=== PATIENT | male | born 1955 | race Caucasian/White ===

== ENCOUNTER 2017-05-07 05:15 | Inpatient (IN) | payer MEDICAID ==
[2017-05-07] VITALS (61 sets, daily range): BP systolic 98–186; BP diastolic 60–112
[~2017-05-07] VITALS: Ht 175.3 cm; Wt 114.0 kg
[~2017-05-07 05:15] MED LIST: AMLO2.5T45 PO; ATOR-2 PO; FURO40TA5 PO; GABA-290 PO; GABA-531 PO; INSU100I11 SQ; LEVO200T8 PO; LOSA50TA20 PO; METO25TA6 PO; TAMS0.4C31 PO; TRAZ-129 PO
[2017-05-07] MEDS ORDERED: GELATIN SPONGE,ABSORBABLE SZ 100 ONE (06:06)
[2017-05-07] MEDS ORDERED: THROMBIN (BOVINE) 5000 UNITS/VIAL TOP ONE (06:06)
[2017-05-07] MEDS ORDERED: NORMAL SALINE 0.9% 10 ML SYR ONE (06:06)
[2017-05-07] MEDS ORDERED: BACITRACIN 50,000 UNITS/VIAL ONE (06:06)
[2017-05-07] MEDS ORDERED: DEXT 5%/0.9% NACL 1,000 ML IV SCH (06:15)
[2017-05-07] MEDS ORDERED: INSULIN REGULAR (HUMULIN R) 300UNITS/3ML SUBCUT ONE (06:15)
[2017-05-07] MEDS ORDERED: INSULIN REGULAR (HUMULIN R) UD 100 UNITS/ML SYR SUBCUT ONE (06:30)
[2017-05-07 06:40] LABS: BASOPHILS % 0.7 % (0.0-2.0); EOSINOPHILS % 4.1 % (0.0-5.0); HEMATOCRIT. 41.9 % (42.0-52.0); HEMOGLOBIN. 14.6 g/dL (14.0-18.0); LYMPHOCYTES % 21.3 % (20.0-50.0); MEAN CORPUSCULAR HEMOGLOBIN 31.8 pg (28.0-32.0); MEAN CORPUSCULAR VOLUME 90.9 fL (80.0-94.0); MEAN PLATELET VOLUME 9.6 fl (7.4-10.4); MONOCYTES % 6.7 % (2.0-8.0); NEUTROPHILS % 67.2 % (40.0-76.0); PLATELET 253 x1000/uL (130-400); RED CELL DISTRIBUTION WIDTH 13.4 % (11.6-14.6)
[2017-05-07 06:43] LABS: CLARITY URINE CLEAR (CLEAR); COLOR URINE YELLOW (YELLOW); GLUCOSE URINE 3+ (NEGATIVE); KETONES URINE NEGATIVE (NEGATIVE); LEUKOCYTE ESTERASE URINE NEGATIVE (NEGATIVE); NITRITE URINE NEGATIVE (NEGATIVE); OCCULT BLOOD URINE 1+ (NEGATIVE); PROTEIN URINE 3+ (NEGATIVE); SPECIFIC GRAVITY URINE 1.022 (1.005-1.030)
[2017-05-07] MEDS ORDERED: ONDANSETRON HCL 4MG/2ML VIAL IV PRN ×2 (07:30→08:30)
[2017-05-07] MEDS ORDERED: IPRATROPIUM/ALBUTEROL 0.5-3(2.5)MG/3ML NEB INH PRN (07:30)
[2017-05-07] MEDS ORDERED: ACETAMINOPHEN 325MG TABLET PO PRN (07:30)
[2017-05-07] MEDS ORDERED: DIPHENHYDRAMINE 50MG/ML VIAL IV PRN (07:30)
[2017-05-07] MEDS ORDERED: MIDAZOLAM HCL 2 MG/2 ML VIAL ONE (07:35)
[2017-05-07] MEDS ORDERED: FENTANYL CITRATE/PF 50MCG/ML 2ML VIAL ONE (07:35)
[2017-05-07] MEDS ORDERED: HYDROMORPHONE HCL/PF 2MG/ML (OR) ONE (08:06)
[2017-05-07] MEDS ORDERED: MEPERIDINE HCL/PF 25MG/ML CPJ IV PRN (08:30)
[2017-05-07] MEDS ORDERED: LABETALOL HCL 20MG/4ML CARPUJECT IV PRN (08:30)
[2017-05-07] MEDS ORDERED: HYDROMORPHONE HCL/PF 2MG/ML CPJ IV PRN (08:30)
[2017-05-07] MEDS ORDERED: PROPOFOL 200MG/20ML VIAL IV ONE (09:17)
[2017-05-07] MEDS ORDERED: CEFAZOLIN SODIUM 1000MG/VIAL ONE (09:17)
[2017-05-07] MEDS ORDERED: ROCURONIUM BROMIDE 10MG/ML VIAL 5ML IV ONE (09:17)
[2017-05-07] MEDS ORDERED: GLYCOPYRROLATE 0.2 MG/ML 2ML VIAL ONE (09:17)
[2017-05-07] MEDS ORDERED: NEOSTIGMINE METHYLSULFATE 1MG/ML 10 ML VIAL ONE (09:17)
[2017-05-07] MEDS ORDERED: SUCCINYLCHOLINE CHLORIDE 200MG/10ML VIAL IV ONE (09:17)
[2017-05-07] MEDS ORDERED: EPHEDRINE SULFATE 50MG/ML VIAL ONE (09:17)
[2017-05-07] MEDS ORDERED: SODIUM CHLORIDE 0.9% 10ML VIAL ONE (09:17)
[2017-05-07] MEDS ORDERED: LIDOCAINE HCL 1% 20ML VIAL (Pyxis) INJ ONE (09:17)
[2017-05-07] MEDS ORDERED: LIDOCAINE 1%/EPI 1:200,000 10 ML VIAL IJ ONE (09:20)
[2017-05-07] MEDS ORDERED: DEXTROSE 50% WATER 50ML SYRINGE IV PRN (10:15)
[2017-05-07] MEDS ORDERED: DIPHENHYDRAMINE INJ IV PRN (10:30)
[2017-05-07] MEDS ORDERED: ONDANSETRON INJ IV PRN (10:30)
[2017-05-07] MEDS ORDERED: NALOXONE INJ IV PRN (10:30)
[2017-05-07] MEDS: DEXT 5%/LACTATED RINGERS 1,000 ML IV SCH ×2 (11:04→20:00)
[2017-05-07] MEDS ORDERED: HYDROMORPHONE PCA 10MG/50ML IV PRN (11:30)
[2017-05-07] MEDS: INSULIN LISPRO 100 UNITS/ML SUBCUT SCH ×3 (11:38→21:45)
[2017-05-07] MEDS: BLOOD SUGAR DIAGNOSTIC STRIP TEST SCH ×3 (11:39→21:25)
[2017-05-07] MEDS: DEXAMETHASONE 4MG/ML 1ML VIAL IV SCH ×2 (11:39→17:35)
[2017-05-07] MEDS: NICARDIPINE 100 MG in SODIUM CHLORIDE 0.9% 60 ML IV PRN (11:44)
[2017-05-07] MEDS ORDERED: CEFAZOLIN SODIUM 1000MG/VIAL IV SCH (14:00)
[2017-05-07] MEDS: CEFAZOLIN 1000MG PREMIX 50 ML IV SCH ×2 (15:10→21:44)
[2017-05-07] MEDS ORDERED: INFLUENZA VIRUS VACCINE 0.5ML SYR IM ONE (20:30)
[2017-05-07] MEDS ORDERED: PNEUMOCOCCAL 23-VAL P-SAC VAC 0.5 ML IM ONE (20:30)
[2017-05-07] MEDS: INSULIN DETEMIR UD 100 UNITS/ML SYR SUBCUT SCH (21:46)
[2017-05-08] VITALS (73 sets, daily range): BP systolic 122–173; BP diastolic 59–89
[2017-05-08] MEDS: DEXAMETHASONE 4MG/ML 1ML VIAL IV SCH ×5 (01:14→23:12)
[2017-05-08] MEDS: CEFAZOLIN 1000MG PREMIX 50 ML IV SCH (05:22)
[2017-05-08] MEDS: HYDROCODONE/ACETAMINOPHEN 10/325MG TABLET PO PRN (05:23)
[2017-05-08] MEDS: BLOOD SUGAR DIAGNOSTIC STRIP TEST SCH ×4 (05:58→21:01)
[2017-05-08 06:01] LABS: HEMATOCRIT. 39.4 % (42.0-52.0); HEMOGLOBIN. 13.3 g/dL (14.0-18.0); MEAN CORPUSCULAR HEMOGLOBIN 30.9 pg (28.0-32.0); MEAN CORPUSCULAR VOLUME 91.6 fL (80.0-94.0); MEAN PLATELET VOLUME 9.7 fl (7.4-10.4); PLATELET 232 x1000/uL (130-400); RED CELL DISTRIBUTION WIDTH 13.2 % (11.6-14.6)
[2017-05-08] MEDS: INSULIN LISPRO 100 UNITS/ML SUBCUT SCH ×4 (06:05→21:03)
[2017-05-08] MEDS: DEXT 5%/LACTATED RINGERS 1,000 ML IV SCH ×2 (06:05→10:49)
[2017-05-08 07:31] LABS: CHLORIDE 107 mEq/L (98-107)
[2017-05-08 07:46] LABS: CARBON DIOXIDE 24 mEq/L (21-32)
[2017-05-08] MEDS ORDERED: FUROSEMIDE 40MG TABLET PO SCH (09:00)
[2017-05-08] MEDS ORDERED: TAMSULOSIN HCL 0.4MG SR CAPSULE PO SCH (09:00)
[2017-05-08] MEDS ORDERED: LEVOTHYROXINE SODIUM 200MCG TABLET PO SCH (10:00)
[2017-05-08] MEDS: LOSARTAN POTASSIUM 50 MG TABLET PO SCH (10:48)
[2017-05-08] MEDS: METOPROLOL TARTRATE 25MG TABLET PO SCH ×2 (10:48→20:39)
[2017-05-08] MEDS: AMLODIPINE 2.5MG TABLET PO SCH (10:48)
[2017-05-08 12:34] LABS: PLATELET ESTIMATE NORMAL
[2017-05-08] MEDS: FUROSEMIDE 40MG TABLET PO SCH (13:09)
[2017-05-08] MEDS ORDERED: LEVOTHYROXINE SODIUM 100MCG TABLET PO NR (15:15)
[2017-05-08] MEDS ORDERED: TRAZODONE HCL 50MG TABLET PO SCH (17:00)
[2017-05-08] MEDS: TRAZODONE HCL 50MG TABLET PO SCH (20:55)
[2017-05-08] MEDS: TAMSULOSIN HCL 0.4MG SR CAPSULE PO SCH (21:01)
[2017-05-08] MEDS: INSULIN DETEMIR UD 100 UNITS/ML SYR SUBCUT SCH (21:03)
[2017-05-09] VITALS (83 sets, daily range): BP systolic 92–185; BP diastolic 15–108
[2017-05-09] MEDS: DEXT 5%/LACTATED RINGERS 1,000 ML IV SCH (03:16)
[2017-05-09] MEDS: DEXAMETHASONE 4MG/ML 1ML VIAL IV SCH ×3 (05:12→17:32)
[2017-05-09 05:27] LABS: HEMATOCRIT. 40.9 % (42.0-52.0); HEMOGLOBIN. 13.9 g/dL (14.0-18.0); MEAN CORPUSCULAR HEMOGLOBIN 30.8 pg (28.0-32.0); MEAN CORPUSCULAR VOLUME 90.9 fL (80.0-94.0); MEAN PLATELET VOLUME 9.7 fl (7.4-10.4); PLATELET 255 x1000/uL (130-400); RED CELL DISTRIBUTION WIDTH 13.2 % (11.6-14.6)
[2017-05-09] MEDS: NICARDIPINE 100 MG in SODIUM CHLORIDE 0.9% 60 ML IV PRN (06:36)
[2017-05-09] MEDS: LEVOTHYROXINE SODIUM 100MCG TABLET PO SCH (06:37)
[2017-05-09] MEDS: BLOOD SUGAR DIAGNOSTIC STRIP TEST SCH ×4 (06:39→21:47)
[2017-05-09] MEDS: INSULIN LISPRO 100 UNITS/ML SUBCUT SCH ×4 (06:44→21:47)
[2017-05-09 07:21] LABS: PLATELET ESTIMATE NORMAL
[2017-05-09] MEDS: METOPROLOL TARTRATE 25MG TABLET PO SCH ×2 (07:37→21:46)
[2017-05-09] MEDS: FUROSEMIDE 40MG TABLET PO SCH (10:02)
[2017-05-09] MEDS: AMLODIPINE 2.5MG TABLET PO SCH (13:25)
[2017-05-09] MEDS ORDERED: GUAIFENESIN-DM 200MG-20MG/10ML UDC PO PRN (15:00)
[2017-05-09] MEDS: LOSARTAN POTASSIUM 50 MG TABLET PO SCH (16:14)
[2017-05-09] MEDS: TRAZODONE HCL 50MG TABLET PO SCH (21:46)
[2017-05-09] MEDS: TAMSULOSIN HCL 0.4MG SR CAPSULE PO SCH (21:46)
[2017-05-09] MEDS: INSULIN DETEMIR UD 100 UNITS/ML SYR SUBCUT SCH (23:02)
[2017-05-10] VITALS (22 sets, daily range): BP systolic 122–170; BP diastolic 62–99
[2017-05-10] MEDS: DEXAMETHASONE 4MG/ML 1ML VIAL IV SCH ×4 (00:09→18:15)
[2017-05-10] MEDS: DEXT 5%/LACTATED RINGERS 1,000 ML IV SCH (02:11)
[2017-05-10] MEDS: BLOOD SUGAR DIAGNOSTIC STRIP TEST SCH ×5 (05:37→21:41)
[2017-05-10] MEDS: LEVOTHYROXINE SODIUM 100MCG TABLET PO SCH (05:57)
[2017-05-10 06:07] LABS: HEMATOCRIT. 41.3 % (42.0-52.0); HEMOGLOBIN. 13.9 g/dL (14.0-18.0); MEAN CORPUSCULAR HEMOGLOBIN 30.7 pg (28.0-32.0); MEAN CORPUSCULAR VOLUME 91.1 fL (80.0-94.0); PLATELET 267 x1000/uL (130-400); RED BLOOD CELL COUNT 4.54 mill/uL (4.7-6.1); RED CELL DISTRIBUTION WIDTH 13.1 % (11.6-14.6)
[2017-05-10 08:25] LABS: PLATELET ESTIMATE NORMAL
[2017-05-10] MEDS: INSULIN LISPRO 100 UNITS/ML SUBCUT SCH ×4 (08:54→21:00)
[2017-05-10] MEDS: METOPROLOL TARTRATE 25MG TABLET PO SCH ×2 (08:58→21:40)
[2017-05-10] MEDS: FUROSEMIDE 40MG TABLET PO SCH (08:59)
[2017-05-10] MEDS: LOSARTAN POTASSIUM 50 MG TABLET PO SCH ×2 (08:59→21:40)
[2017-05-10] MEDS: AMLODIPINE 2.5MG TABLET PO SCH (08:59)
[2017-05-10] MEDS ORDERED: BISACODYL 5MG TABLET PO NR (13:15)
[2017-05-10] MEDS: DOCUSATE SODIUM 250MG CAPSULE PO SCH (13:45)
[2017-05-10] MEDS: LEVOFLOXACIN 750MG PREMIX 150 ML IV SCH (15:21)
[2017-05-10] MEDS: INSULIN DETEMIR UD 100 UNITS/ML SYR SUBCUT SCH (21:39)
[2017-05-10] MEDS: TAMSULOSIN HCL 0.4MG SR CAPSULE PO SCH (21:40)
[2017-05-10] MEDS: TRAZODONE HCL 50MG TABLET PO SCH (21:40)
[2017-05-11] VITALS (7 sets, daily range): BP systolic 146–175; BP diastolic 72–96
[2017-05-11] MEDS: DEXAMETHASONE 4MG/ML 1ML VIAL IV SCH ×4 (00:43→18:34)
[2017-05-11] MEDS: DEXT 5%/LACTATED RINGERS 1,000 ML IV SCH (00:43)
[2017-05-11] MEDS: HYDROCODONE/ACETAMINOPHEN 10/325MG TABLET PO PRN (05:12)
[2017-05-11 06:04] LABS: HEMATOCRIT. 45.2 % (42.0-52.0); HEMOGLOBIN. 14.9 g/dL (14.0-18.0); MEAN CORPUSCULAR HEMOGLOBIN 30.3 pg (28.0-32.0); MEAN CORPUSCULAR VOLUME 91.8 fL (80.0-94.0); MEAN PLATELET VOLUME 9.7 fl (7.4-10.4); PLATELET 276 x1000/uL (130-400); RED BLOOD CELL COUNT 4.92 mill/uL (4.7-6.1); RED CELL DISTRIBUTION WIDTH 13.6 % (11.6-14.6)
[2017-05-11] MEDS: BLOOD SUGAR DIAGNOSTIC STRIP TEST SCH ×4 (06:27→21:07)
[2017-05-11] MEDS: LEVOTHYROXINE SODIUM 100MCG TABLET PO SCH (06:33)
[2017-05-11] MEDS: DOCUSATE SODIUM 250MG CAPSULE PO SCH (08:56)
[2017-05-11] MEDS: AMLODIPINE 5MG TABLET PO SCH (08:56)
[2017-05-11] MEDS: LOSARTAN POTASSIUM 50 MG TABLET PO SCH ×2 (08:57→21:17)
[2017-05-11] MEDS: FUROSEMIDE 40MG TABLET PO SCH (08:57)
[2017-05-11] MEDS: INSULIN LISPRO 100 UNITS/ML SUBCUT SCH ×4 (08:59→21:19)
[2017-05-11] MEDS: METOPROLOL TARTRATE 25MG TABLET PO SCH ×2 (09:00→21:18)
[2017-05-11] MEDS ORDERED: BISACODYL 5MG TABLET PO PRN (09:00)
[2017-05-11] MEDS: TRAZODONE HCL 50MG TABLET PO SCH (21:17)
[2017-05-11] MEDS: TAMSULOSIN HCL 0.4MG SR CAPSULE PO SCH (21:18)
[2017-05-11] MEDS: INSULIN DETEMIR UD 100 UNITS/ML SYR SUBCUT SCH (21:19)
[2017-05-11 22:31] LABS: PLATELET ESTIMATE NORMAL
[2017-05-12] VITALS: BP 140/85
[2017-05-12] MEDS: DEXAMETHASONE 4MG/ML 1ML VIAL IV SCH ×4 (01:08→18:10)
[2017-05-12 04:00] VITALS: BP 142/75
[2017-05-12] MEDS: BLOOD SUGAR DIAGNOSTIC STRIP TEST SCH ×4 (06:55→20:48)
[2017-05-12] MEDS: LEVOTHYROXINE SODIUM 100MCG TABLET PO SCH (06:55)
[2017-05-12 07:02] LABS: BASOPHILS % 0.1 % (0.0-2.0); HEMATOCRIT. 41.8 % (42.0-52.0); HEMOGLOBIN. 14.2 g/dL (14.0-18.0); LYMPHOCYTES % 9.8 % (20.0-50.0); MEAN CORPUSCULAR HEMOGLOBIN 30.9 pg (28.0-32.0); MEAN CORPUSCULAR VOLUME 90.8 fL (80.0-94.0); MEAN PLATELET VOLUME 9.5 fl (7.4-10.4); NEUTROPHILS % 85.1 % (40.0-76.0); PLATELET 289 x1000/uL (130-400); RED CELL DISTRIBUTION WIDTH 12.8 % (11.6-14.6)
[2017-05-12] MEDS: INSULIN LISPRO 100 UNITS/ML SUBCUT SCH ×4 (07:56→21:15)
[2017-05-12 08:00] VITALS: BP 138/60
[2017-05-12] MEDS: DOCUSATE SODIUM 250MG CAPSULE PO SCH (09:11)
[2017-05-12] MEDS: LOSARTAN POTASSIUM 50 MG TABLET PO SCH ×2 (09:11→20:47)
[2017-05-12] MEDS: AMLODIPINE 5MG TABLET PO SCH (09:12)
[2017-05-12] MEDS: METOPROLOL TARTRATE 25MG TABLET PO SCH ×2 (09:12→20:47)
[2017-05-12] MEDS: FUROSEMIDE 40MG TABLET PO SCH (09:12)
[2017-05-12 12:00] VITALS: BP 137/88
[2017-05-12] MEDS: LACTULOSE 20G/30ML UDC PO SCH ×4 (13:01→20:53)
[2017-05-12] MEDS: LEVOFLOXACIN 750MG PREMIX 150 ML IV SCH (13:06)
[2017-05-12 16:00] VITALS: BP 125/65
[2017-05-12 20:00] VITALS: BP 139/78
[2017-05-12] MEDS: POLYETHYLENE GLYCOL 3350 (17GM) 1 DOSE PACK PO SCH ×2 (20:46→20:53)
[2017-05-12] MEDS: TAMSULOSIN HCL 0.4MG SR CAPSULE PO SCH (20:46)
[2017-05-12] MEDS: TRAZODONE HCL 50MG TABLET PO SCH (20:47)
[2017-05-12] MEDS: DEXT 5%/LACTATED RINGERS 1,000 ML IV SCH (20:48)
[2017-05-12] MEDS: INSULIN DETEMIR UD 100 UNITS/ML SYR SUBCUT SCH (21:15)
[2017-05-13] VITALS: BP 163/87
[2017-05-13] MEDS: DEXAMETHASONE 4MG/ML 1ML VIAL IV SCH ×5 (00:01→23:56)
[2017-05-13 04:00] VITALS: BP 154/79
[2017-05-13] MEDS: BLOOD SUGAR DIAGNOSTIC STRIP TEST SCH ×4 (06:51→20:54)
[2017-05-13] MEDS: LEVOTHYROXINE SODIUM 100MCG TABLET PO SCH (06:51)
[2017-05-13 07:40] LABS: BASOPHILS % 0.1 % (0.0-2.0); HEMATOCRIT. 42.7 % (42.0-52.0); HEMOGLOBIN. 14.6 g/dL (14.0-18.0); LYMPHOCYTES % 9.7 % (20.0-50.0); MEAN CORPUSCULAR HEMOGLOBIN 31.2 pg (28.0-32.0); MEAN CORPUSCULAR VOLUME 91.4 fL (80.0-94.0); MEAN PLATELET VOLUME 9.7 fl (7.4-10.4); MONOCYTES % 5.8 % (2.0-8.0); NEUTROPHILS % 84.4 % (40.0-76.0); PLATELET 286 x1000/uL (130-400); RED BLOOD CELL COUNT 4.67 mill/uL (4.7-6.1); RED CELL DISTRIBUTION WIDTH 13.2 % (11.6-14.6)
[2017-05-13] MEDS ORDERED: NA PHOS,M-B/NA PHOS,DI-BA ENEMA 118ML PR ONE (07:45)
[2017-05-13] MEDS ORDERED: BISACODYL 10MG SUPP PR PRN (07:45)
[2017-05-13] MEDS ORDERED: LACTULOSE 20G/30ML UDC PO PRN (07:45)
[2017-05-13] MEDS: INSULIN LISPRO 100 UNITS/ML SUBCUT SCH ×4 (07:50→21:36)
[2017-05-13 08:05] VITALS: BP 151/73
[2017-05-13] MEDS: AMLODIPINE 5MG TABLET PO SCH (08:25)
[2017-05-13] MEDS: DOCUSATE SODIUM 250MG CAPSULE PO SCH (08:25)
[2017-05-13] MEDS: FUROSEMIDE 40MG TABLET PO SCH (08:26)
[2017-05-13] MEDS: LOSARTAN POTASSIUM 50 MG TABLET PO SCH ×2 (08:26→20:54)
[2017-05-13] MEDS: METOPROLOL TARTRATE 25MG TABLET PO SCH ×2 (08:27→20:53)
[2017-05-13 12:00] VITALS: BP 175/96
[2017-05-13 16:00] VITALS: BP 131/77
[2017-05-13 20:00] VITALS: BP 168/92
[2017-05-13] MEDS: TAMSULOSIN HCL 0.4MG SR CAPSULE PO SCH (20:53)
[2017-05-13] MEDS: POLYETHYLENE GLYCOL 3350 (17GM) 1 DOSE PACK PO SCH (20:54)
[2017-05-13] MEDS: TRAZODONE HCL 50MG TABLET PO SCH (20:54)
[2017-05-13] MEDS: INSULIN DETEMIR UD 100 UNITS/ML SYR SUBCUT SCH (21:37)
[2017-05-14] VITALS (7 sets, daily range): BP systolic 121–172; BP diastolic 68–92
[2017-05-14] MEDS: LEVOTHYROXINE SODIUM 100MCG TABLET PO SCH (06:30)
[2017-05-14] MEDS: DEXAMETHASONE 4MG/ML 1ML VIAL IV SCH ×3 (06:30→18:25)
[2017-05-14] MEDS: BLOOD SUGAR DIAGNOSTIC STRIP TEST SCH ×4 (06:31→21:13)
[2017-05-14] MEDS: DEXT 5%/LACTATED RINGERS 1,000 ML IV SCH ×2 (06:31→12:00)
[2017-05-14] MEDS: INSULIN LISPRO 100 UNITS/ML SUBCUT SCH ×4 (07:50→21:12)
[2017-05-14] MEDS: FUROSEMIDE 40MG TABLET PO SCH (09:07)
[2017-05-14] MEDS: DOCUSATE SODIUM 250MG CAPSULE PO SCH (09:07)
[2017-05-14] MEDS: LOSARTAN POTASSIUM 50 MG TABLET PO SCH ×2 (09:09→21:13)
[2017-05-14] MEDS: METOPROLOL TARTRATE 25MG TABLET PO SCH ×2 (09:10→21:13)
[2017-05-14] MEDS: AMLODIPINE 5MG TABLET PO SCH (09:10)
[2017-05-14] MEDS: LEVOFLOXACIN 750MG PREMIX 150 ML IV SCH (14:53)
[2017-05-14] MEDS: INSULIN DETEMIR UD 100 UNITS/ML SYR SUBCUT SCH (21:12)
[2017-05-14] MEDS: POLYETHYLENE GLYCOL 3350 (17GM) 1 DOSE PACK PO SCH (21:12)
[2017-05-14] MEDS: TRAZODONE HCL 50MG TABLET PO SCH (21:13)
[2017-05-14] MEDS: TAMSULOSIN HCL 0.4MG SR CAPSULE PO SCH (21:13)
[2017-05-15 00:08] VITALS: BP 135/73
[2017-05-15] MEDS: DEXAMETHASONE 4MG/ML 1ML VIAL IV SCH ×3 (00:13→12:31)
[2017-05-15 04:00] VITALS: BP 127/63
[2017-05-15] MEDS: BLOOD SUGAR DIAGNOSTIC STRIP TEST SCH ×2 (06:20→12:24)
[2017-05-15] MEDS: LEVOTHYROXINE SODIUM 100MCG TABLET PO SCH (06:20)
[2017-05-15] MEDS: DEXT 5%/LACTATED RINGERS 1,000 ML IV SCH (06:26)
[2017-05-15] MEDS: INSULIN LISPRO 100 UNITS/ML SUBCUT SCH ×2 (07:03→12:34)
[2017-05-15 07:48] VITALS: BP 120/81
[2017-05-15] MEDS: DOCUSATE SODIUM 250MG CAPSULE PO SCH (09:00)
[2017-05-15] MEDS: AMLODIPINE 5MG TABLET PO SCH (09:11)
[2017-05-15] MEDS: METOPROLOL TARTRATE 25MG TABLET PO SCH (09:11)
[2017-05-15] MEDS: FUROSEMIDE 40MG TABLET PO SCH (09:11)
[2017-05-15] MEDS: LOSARTAN POTASSIUM 50 MG TABLET PO SCH (09:11)
[2017-05-15 12:06] VITALS: BP 132/74
[2017-05-15 15:44] VITALS: BP 126/72
[2017-05-15] MEDS ORDERED: FENTANYL CITRATE/PF 50MCG/ML 2ML VIAL ONE (16:16)
[2017-05-15] MEDS ORDERED: MIDAZOLAM HCL 2 MG/2 ML VIAL ONE (16:16)
== END 2017-05-15 18:20 | disposition home health service (06) | DRG 710 ==
LOC: OR 05:15 → MICUNO 05:16 → 6WST 05-10 05:35
PROVIDERS: ADMIT Neurological Surgery; ATTEND Neurological Surgery
PROC: 0RG20K0 Fusion of 2 or more Cervical Vertebral Joints with Nonautologous Tissue Substitute, Anterior Approach, Anterior Column, Open Approach (ICD-10-PCS; 2017-05-07)
PROC: 0RT30ZZ Resection of Cervical Vertebral Disc, Open Approach (ICD-10-PCS; principal; 2017-05-07 07:00)
DX: A41.59 Other Gram-negative sepsis (principal); G82.50 Quadriplegia, unspecified; E43 Unspecified severe protein-calorie malnutrition; N17.9 Acute kidney failure, unspecified; M47.12 Other spondylosis with myelopathy, cervical region; E11.22 Type 2 diabetes mellitus with diabetic chronic kidney disease; G95.20 Unspecified cord compression; M48.02 Spinal stenosis, cervical region; G90.8 Other disorders of autonomic nervous system; E11.40 Type 2 diabetes mellitus with diabetic neuropathy, unspecified; M47.22 Other spondylosis with radiculopathy, cervical region; Z91.81 History of falling; E11.319 Type 2 diabetes mellitus with unspecified diabetic retinopathy without macular edema; E11.622 Type 2 diabetes mellitus with other skin ulcer; R00.1 Bradycardia, unspecified; T44.7X5A Adverse effect of beta-adrenoreceptor antagonists, initial encounter; L97.829 Non-pressure chronic ulcer of other part of left lower leg with unspecified severity; E03.9 Hypothyroidism, unspecified; I12.9 Hypertensive chronic kidney disease with stage 1 through stage 4 chronic kidney disease, or unspecified chronic kidney disease; K59.00 Constipation, unspecified; E78.5 Hyperlipidemia, unspecified; N18.9 Chronic kidney disease, unspecified; N40.0 Benign prostatic hyperplasia without lower urinary tract symptoms; Z87.820 Personal history of traumatic brain injury; Z90.49 Acquired absence of other specified parts of digestive tract; Z79.4 Long term (current) use of insulin; Z82.49 Family history of ischemic heart disease and other diseases of the circulatory system; Z83.3 Family history of diabetes mellitus; Z89.411 Acquired absence of right great toe; Y92.89 Other specified places as the place of occurrence of the external cause
CPT/HCPCS: 36415; 71010; 71250; 72040; 72141; 80048; 80053; 81001; 82962; 83735; 84443; 85025; 86850; 86900; 87070; 87077; 87186; 87205; 88304; 88311; 92610; 93005; 93306; 95925; 95926; 95928; 97110; 97116; 97163; 97166; 97530; 97535; A4216; A6261; C1713; J0171; J0330; J0690; J1100; J1170; J1815; J1956; J2250; J2405; J2704; J2710; J3010; J3490; J7040; J7050; J7121; L0172; L3908